=== PATIENT | female | born 1985 | race Caucasian/White ===

== ENCOUNTER 2017-11-05 18:41 | Emergency (ER) | payer MEDICAID, OTHER ==
[~2017-11-05] VITALS: Ht 162.6 cm; Wt 93.2 kg
[2017-11-05 18:48] VITALS: BP 168/75; PULSE 89; RESP 16; TEMP 101.3; O2SAT 99
--- NOTE | 2017-11-05 19:10 | RADRPT ---
EXAM DATE/TIME: 11/05/2017 19:00 [place] COMPARISON: No previous studies available for comparison. INDICATIONS : Cough, fever MEDICAL HISTORY : SURGICAL HISTORY : None. ENCOUNTER: Initial ACUITY: 2 weeks PAIN SCORE: 0/10 LOCATION: chest FINDINGS: PA and lateral views of the chest demonstrate the lungs to be symmetrically aerated without evidence of mass, infiltrate or effusion. The cardiomediastinal contours are unremarkable. Osseous structure s are intact. CONCLUSION: Normal 2 view chest x-ray. Hermann Willams MD on November 05, 2017 at 19:08 Board Certified Radiologist. This report was verified electronically.
[2017-11-05] MEDS ORDERED: LEXA20TA PO (20:28)
[2017-11-05] MEDS ORDERED: IBUPROFEN 800 MG TAB PO ONE (20:30)
--- NOTE | 2017-11-05 20:44 | PD ---
HPI Chief Complaint: Cold / Flu Symptoms Time Seen by Provider: 20:26 Travel History International Travel<30 days: No Contact w/Intl Traveler<30days: No Traveled to known affect area: No History of Present Illness HPI Patient is a 32-year-old female presenting to the emergency department for evaluation of a cough. Patient states the cough has been persistent for the last week. The cough is nonproductive. There are no alleviating or exacerbating factors. Symptom onset was gradual. Patient denied any fevers, chills, abdominal pain, nausea, vomiting, chest pain or shortness of breath. Patient denies any nasal congestion or postnasal drip. He does report a mild sore throat which she attributed to coughing. Patient has not taken any medications to alleviate her symptoms. She denies any significant past medical history. PFSH Past Medical History Depression: Yes Tetanus Vaccination: > 5 Years Influenza Vaccination: No ?: Not Dilation and Curettage (D&C): Yes Past Surgical History Surgical History: No Previous Surgery Social History Alcohol Use: No Tobacco Use: No Substance Use: No Allergies-Medications (Allergen,Severity, Reaction): Coded Allergies: latex (Verified Allergy, Mild, rash, 11/05/17) Reported Meds & Prescriptions Reported Meds & Active Scripts Active Reported Lexapro (Escitalopram Oxalate) 20 Mg Tab 20 Mg PO DAILY Review of Systems Except as stated in HPI: all other systems reviewed are Neg General / Constitutional: No: Fever, Chills HENT: Positive: Rhinitis, No: Headaches Cardiovascular: No: Chest Pain or Discomfort Respiratory: Positive: Cough, No: Shortness of Breath Gastrointestinal: No: Nausea Musculoskeletal: No: Myalgias Physical Exam Narrative GENERAL: Well-developed, well-nourished, alert female. Presenting in no acute distress. SKIN: Warm and dry. HEAD: Atraumatic. Normocephalic. EYES: Pupils equal and round. No scleral icterus. No injection or drainage. ENT: No nasal bleeding or discharge. Mucous membranes pink and moist. Posterior pharynx with cobblestone appearance. NECK: Trachea midline. No JVD. CARDIOVASCULAR: Regular rate and rhythm. RESPIRATORY: No accessory muscle use. Clear to auscultation. Breath sounds equal bilaterally. GASTROINTESTINAL: Abdomen soft, non-tender, nondistended. Hepatic and splenic margins not palpable. MUSCULOSKELETAL: Extremities without clubbing, cyanosis, or edema. No obvious deformities. NEUROLOGICAL: Awake and alert. No obvious cranial nerve deficits. Motor grossly within normal limits. Five out of 5 muscle strength in the arms and legs. Normal speech. PSYCHIATRIC: Appropriate mood and affect; insight and judgment normal. Data Data Last Documented VS Vital Signs Date Time Temp Pulse Resp B/P (MAP) Pulse Ox O2 Delivery O2 Flow Rate FiO2 11/05/17 21:44 98.1 11/05/17 18:48 89 16 99 Orders Orders Chest, Pa & Lat (11/05/17 ) Influenzae A/B Antigen (11/05/17 20:30) Ibuprofen (Motrin) (11/05/17 20:30) Group A Rapid Strep Screen (11/05/17 20:39) Strep Culture (Group A) (11/05/17 20:42) MDM Medical Decision Making Medical Screen Exam Complete: Yes Emergency Medical Condition: Yes Interpretation(s) Last Impressions Chest X-Ray 11/05/17 0000 Signed Impressions: Service Date/Time: October 19:00 - CONCLUSION: Normal 2 view chest x-ray. Hermann Willams MD Vital Signs Date Time Temp Pulse Resp B/P (MAP) Pulse Ox O2 Delivery O2 Flow Rate FiO2 11/05/17 18:48 101.3 89 16 168/75 (106) 99 Differential Diagnosis Influenza versus strep versus bronchitis versus other Narrative Course Patient is a well-appearing 32-year-old female presenting for evaluation of a cough. On arrival patient was noted to have a fever of 101.3. Chest x-ray was ordered in triage and shows no acute abnormality. Patient was given ibuprofen now. Will obtain an influenza and strep swab. Influenza and strep are negative. Patient was given ibuprofen and her temp was reassessed at 98.1. Symptoms appear more viral in nature. Patient is encouraged to continue symptom management, she will be given a backup antibiotic however she was encouraged to wait before taking to see if symptoms improve on their own. She is encouraged to follow-up with her primary doctor or return to emergency department for any new or worsening symptoms. Patient verbalized understanding of instructions. Patient stable for discharge. Diagnosis Primary Impression: Viral syndrome Referrals: Primary Care Physician Patient Instructions: General Instructions, Viral Syndrome (DC) Additional Instructions: Follow-up with your primary doctor Continue symptom management Return to emergency cranial worsening symptoms Med/Other Pt SpecificInfo: Prescription(s) given Scripts Benzonatate (Tessalon Perles) 100 Mg Cap 100 MG PO TID Y for COUGH, #12 CAP 0 Refills Prov: Jaqui Mackay 11/05/17 Amoxicillin (Amoxicillin) 875 Mg Tab 875 MG PO BID for Infection, #20 TAB 0 Refills Prov: Jaqui Mackay 11/05/17 Ibuprofen (Ibuprofen) 800 Mg Tab 800 MG PO Q6HR Y for PAIN, #40 TAB 0 Refills Prov: Jaqui Mackay 11/05/17 Disposition: 01 DISCHARGE HOME Condition: Stable Jaqui Mackay Nov 05, 2017 20:44
[2017-11-05 21:44] VITALS: TEMP 98.1
[2017-11-05] MEDS ORDERED: IBUP1TAB7 PO (21:49)
[2017-11-05] MEDS ORDERED: BENZ100 PO (21:49)
[2017-11-05] MEDS ORDERED: AMOX875T PO (21:49)
== END 2017-11-05 21:58 | disposition home or self-care (01) ==
LOC: NEPD 18:41
DX: B34.9 Viral infection, unspecified (principal); F32.9 Major depressive disorder, single episode, unspecified
CPT/HCPCS: 71046; 87081; 87804; 87880; 99284